=== PATIENT | male | born 1960 | race Caucasian/White ===

== ENCOUNTER 2018-01-27 14:49 | Emergency (ER) | payer OTHER ==
[~2018-01-27] VITALS: Ht 185.4 cm; Wt 111.6 kg
[2018-01-27] MEDS ORDERED: METFORMIN HCL500 MG PO (15:04)
[2018-01-27 15:45] LABS: URINE BILIRUBIN NEGATIVE (Negative); URINE BLOOD NEGATIVE (Negative); URINE CLARITY CLEAR; URINE COLOR YELLOW; URINE GLUCOSE-RANDOM NEGATIVE (Negative); URINE KETONES NEGATIVE (Negative); URINE LEUKOCYTES NEGATIVE (Negative); URINE NITRITE NEGATIVE (Negative); URINE PROTEIN NEGATIVE (Negative); URINE SPECIFIC GRAVITY 1.015 (1.005-1.030)
[2018-01-27] MEDS ORDERED: NORCO 5-325 TA1 EACH PO (16:04)
[2018-01-27] MEDS ORDERED: FLEXERIL PO (16:04)
[2018-01-27 16:13] VITALS: BP 133/63
[2018-02-12] MEDS ORDERED: TRAMADOL 50 MG50 MG PO (12:33)
[2018-02-12] MEDS ORDERED: MOBIC15 MG PO (13:28)
[2018-02-19] MEDS ORDERED: FLEXERIL PO (09:18)
[2018-02-19] MEDS ORDERED: MOBIC15 MG PO (09:18)
== END 2018-01-27 16:15 | disposition home or self-care (01) ==
LOC: M.ERS 14:49
PROVIDERS: Physician Assistant Surgical
DX: S39.012A Strain of muscle, fascia and tendon of lower back, initial encounter (principal); Z96.641 Presence of right artificial hip joint; X50.1XXA Overexertion from prolonged static or awkward postures, initial encounter; Y93.89 Activity, other specified; Y92.89 Other specified places as the place of occurrence of the external cause; Y99.8 Other external cause status

== ENCOUNTER → 2018-02-12 | Outpatient (CLI) | payer OTHER ==
[~2018-02-12] MED LIST: FLEXERIL PO; METFORMIN HCL500 MG PO; MOBIC15 MG PO; NORCO 5-325 TA1 EACH PO; TRAMADOL 50 MG50 MG PO
--- NOTE | 2018-03-25 10:00 | PAINCON ---
[address] [address] PAIN MANAGEMENT CONSULTATION Name: TYRESE PETERSON Room: [facility]#: [id number] Admission: 02/12/18 Attend Phys: Clif Salomon MD Discharge: Date of : 56 Report #: [id number] THIS REPORT FOR: //name// CC: [facility] physician/PCP Clif Salomon DATE OF SERVICE: 02/12/2018 PRIMARY CARE PHYSICIAN: He does not have a primary family physician. CHIEF COMPLAINT: "Pain in the low back is worse when I try to walk." HISTORY OF PRESENT ILLNESS: The patient is a 57-year-old gentleman who has been referred to the Pain Clinic for evaluation of back and leg pain. The patient noted onset of this discomfort on 01/26/2018. Notes that when he got out of bed, he was experiencing pain which was radiating down into his leg. Denies any trauma. Denies any past history of similar pain. Denies any bowel or bladder dysfunction. He has tried nonsteroidal anti-inflammatory medications. The patient did go to the Emergency Room because of discomfort. He does have a history of diabetes. He was evaluated. No kidney stones were found. The patient has undergone a CT as well as an MRI. ALLERGIES: No known drug allergies. MEDICATIONS: Metformin 500 mg b.i.d., Flexeril 1-2 tablets daily. PAST MEDICAL HISTORY: Diabetes. PAST SURGICAL HISTORY: Right hip replacement, left rotator cuff on 06/25/2013, right rotator cuff on 06/22/2016, left toe surgery. 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 He is not working, has not worked since 01/28/2018. REVIEW OF SYSTEMS: Generally good health, wears glasses, loss of appetite, changes in bowels, painful bowel, frequent urination, awakens at night to urinate, lightheadedness, dizziness, difficulty walking, back pain, muscle pain and cramps, weakness of muscles and joints, excessive thirst. DIAGNOSTIC DATA: MRI dated 01/29/2018: 1. There is a 2.8 cm exophytic cyst of the mid pole cortex of the left kidney, measuring signal intensity most suggestive of a simple cyst. 2. L1-L2: There is disk degeneration with disk desiccation and broad right paracentral annular disk bulge. This creates a mild flattening of the anterior thecal sac without encroachment upon the neural foramen or compressing and exiting nerve root. No evidence of spinal [place] [address] PAIN MANAGEMENT CONSULTATION Name: TYRESE PETERSON Room: [facility]#: [id number] Admission: 02/12/18 Attend Phys: Clif Salomon MD Discharge: Date of : 56 Report #: [id number] narrowing. Thecal sac 1.1 cm AP. 3. L2-L3: There is degenerative disk with disk desiccation and broad annular disk bulge. There is grade 1 anterolisthesis of L1 upon L3, measuring 0.5 cm, and a small midline disk protrusion which creates concave flattening of the anterior aspect of the thecal sac. There is posterior epidural or extradural deformity of the thecal sac also present produced bilateral hypertrophic facet arthropathy and hypertrophy of ligamentum flavum. This combination of findings produces [id number] stenosis of the central spinal canal and lateral recesses. There is also mild narrowing of the neural foramen bilaterally. Thecal sac 0.7 cm AP. 4. L3-L4: There is disk degeneration with disk desiccation and a broad central disk bulge. There is grade 1 retrolisthesis of L3 upon L4, measuring 0.5 cm. This creates a symmetric flattening of the left anterior thecal sac. There is bilateral hypertrophic degenerative facet arthropathy and there is mild hypertrophy of ligamentum flavum. No evidence for narrowing of the right neural foramen or right lateral recess. There is a symmetric narrowing and stenosis of the left neural foramen and probable extrinsic compression of the exiting left nerve root. There is also a small synovial cyst at the anterior margin of the left facet reticulation, likely contributing to narrowing of the left foramen and left recess. No significant stenosis or central spinal canal is present. Thecal sac 1.0 cm AP. 5. L4-L5: Degenerative disk changes with disk space narrowing, broad-based disk bulge, and possible small midline disk protrusion. This creates mild concave flattening of the thecal sac without encroachment upon the neural foramen. There is bilateral foraminal narrowing, produced bilateral hypertrophic facet arthropathy. No significant stenosis or central spinal canal. Thecal sac 1.4 cm AP. 6. L5-S1: There is a transitional lumbosacral junction. There is a hypoplastic disk present at the L5-S1 level. No evidence for disk protrusion, spinal stenosis or significant foraminal narrowing. Thecal sac 1.4 cm AP. Cervical spine CT dated 01/01/2018 findings: 1. Vertebral/soft tissues straightening is noted of the normal cervical lordotic curve. Mineralization appears normal. No fractures are identified. Prevertebral soft issues appear normal. 2. Intervertebral disk/facet is moderate. Intervertebral disk space narrowing is noted at the C6 with prominent osteophyte demonstrated. Moderate intervertebral disk space narrowing is noted at C6-C7 with osteophyte formation. Marked posterior neural foraminal stenosis is present at C3-C4, C4-C5, C5-C6, and C6-C7 levels bilaterally with bony osteophytes. 3. Marked degenerative arthritic changes of cervical spine with posterior neural foraminal stenosis. PAIN CLINIC ASSESSMENT: 1. History of osteoarthritis: The patient is not being treated for [place] [address] PAIN MANAGEMENT CONSULTATION Name: TYRESE PETERSON Room: [facility]#: [id number] Admission: 02/12/18 Attend Phys: Clif Salomon MD Discharge: Date of : 56 Report #: [id number] 2. Height 6 feet 1 inch, weight 238 pounds, BMI 33.9. 3. Vital signs: Blood pressure 148/80, heart rate 106, respiratory rate 16, room air saturation 98%. 4. Pain number: 02/18. 5. Fall history: The patient has not fallen in the last 3 months. 6. Blood thinner: The patient is not on blood thinning medication. 7. Hypertension: The patient is not being treated for hypertension. 8. Opioid medications: The patient is not on a regular opioid medication regimen. PHYSICAL EXAMINATION: GENERAL: The patient is a well-developed, well-nourished, white male. Appears his stated age. He is alert and oriented x 3. Affect is appropriate. Speech is fluent. HEENT: Normocephalic, atraumatic. Extraocular eye muscles intact. Sclerae not icteric. Mucous membranes are moist. NECK: With good range of motion without JVD or adenopathy. HEART: Regular rate. ABDOMEN: Nontender. MUSCULOSKELETAL: Upper extremity muscle strength is judged to be 5/5 for the major muscle groups without sensory changes. Lower extremity muscle strength is judged to be 5/5 for the major muscle groups. The patient has some pain and discomfort in the left and right paraspinal areas at L5-S1 as well as notes some pain and discomfort in the L2-L3 area of his left leg. The patient does walk with an antalgic gait. IMPRESSION: 1. Low back pain and strain. 2. Diabetes. RECOMMENDATIONS: We discussed treatment options with the patient. At this juncture, we will try conservative approach. The patient will try Meloxicam 15 mg 1 p.o. daily. Possibility of an injection to the affected areas in the future is an option. The patient will continue with stretching exercises. He may follow up with Dr. Eladio Alvarado in the near future to see whether or not surgical option would be necessary. At this juncture, we will continue with our conservative approach. We would like to thank you for letting us participate in his care. We hope he continues to improve. <ELECTRONICALLY SIGNED> By: Clif Salomon MD 03/25/18 [id number]. Prasanth Salomon MD /nt
== END ==
LOC: M.PC 03:47
DX: S39.012A Strain of muscle, fascia and tendon of lower back, initial encounter (principal); E11.9 Type 2 diabetes mellitus without complications; M19.90 Unspecified osteoarthritis, unspecified site; X58.XXXA Exposure to other specified factors, initial encounter; Y93.89 Activity, other specified; Y92.89 Other specified places as the place of occurrence of the external cause; Y99.8 Other external cause status

== ENCOUNTER → 2018-05-30 | Outpatient (CLI) | payer OTHER ==
[~2018-05-30] MED LIST changes: +CENTRUM SILVER1 EAC2 PO; +IBUPROFEN 200200 M1 PO
--- NOTE | ~2018-05-30 | PAINCON ---
[address] [address] PAIN MANAGEMENT CONSULTATION Name: TYRESE PETERSON [id number] Admission: 05/30/18 Attend Phys: Clif Salomon MD Discharge: Date of : 56 Report #: [id number] THIS REPORT FOR: //name// CC: [facility] physician/PCP Clif Salomon DATE OF SERVICE: 05/30/2018 HISTORY OF PRESENT ILLNESS: The patient is a 58-year-old gentleman who has been seen in the pain clinic in the past. He has had pain and discomfort, which was quite problematic. He was seen by the neurosurgeon. At that time, he was felt to have developed an infection in his low back area. He underwent appropriate treatment using IV antibiotics for a number of weeks. Overall, things have improved. He still has some pain and discomfort in his low back area. He has been seeking the services of a chiropractor. His back has continued to improve since the bacterial infection has been eradicated. He rates his pain as low while sitting, but can rise to a level that is quite problematic with activity. He has been doing stretching exercises. He has used a TENS unit. He notes that his pain can be quite problematic, particularly when he wakes up in the morning. He finds tramadol helpful. He has been using ibuprofen p.r.n. He notes that the pain is worse with activity such as walking, lifting, climbing stairs, bending. Medications and rest are beneficial and decrease his pain and discomfort. The patient does have diabetes. Continues to follow up with his chiropractor, which seems to be helping. He is making progress, albeit slowly. ALLERGIES: No known drug allergies. CURRENT MEDICATIONS: Metformin 500 mg b.i.d., tramadol 50 mg p.r.n., ibuprofen 200 mg. PAIN CLINIC ASSESSMENT: 1. History of osteoarthritis. The patient has arthritic changes with replacement of his right hip, left rotator cuff repair, and right rotator cuff repair. The patient has not been treated for rheumatoid arthritis. 2. Height 6 feet 1 inch, weight 256 pounds, BMI is 33. 3. Vital signs: Blood pressure 155/82, heart rate 81, respiratory rate 16, room air saturation 96%, temperature 97.9. 4. Pain score 0/10 with sitting, increases with walking and activities of daily living. 5. Fall risk. The patient has not fallen in the last 3 months. 6. Blood thinner. The patient is not on a blood thinning medication. 7. Hypertension. The patient is not being treated for hypertension. 8. Opioid is greater than 6 weeks. The patient is not on opioid regimen. He is receiving tramadol p.r.n. for pain relief. 9. Risk assessment tool, low for opioid use. 10. Functional [place] [address] PAIN MANAGEMENT CONSULTATION Name: KRISTENTYRESE Isidra Room: [facility]#: [id number] Admission: 05/30/18 Attend Phys: Clif Salomon MD Discharge: Date of : 56 Report #: [id number] 11. Recreational drug use. The patient denies use of recreational drugs. 12. Tobacco: The patient denies use of tobacco. 13. Alcohol: The patient denies use of alcoholic beverages. PHYSICAL EXAMINATION: GENERAL: The patient is a well-developed, well-nourished white male. Appears his stated age. He is alert and oriented x 3. Affect is appropriate. Speech is fluent. HEENT: Normocephalic, atraumatic. Extraocular eye muscles intact. Sclerae nonicteric. Mucous membranes are moist. NECK: Without adenopathy or JVD. HEART: Regular rate. S1, S2. CHEST: Clear to auscultation. ABDOMEN: Nontender. Bowel sounds present. EXTREMITIES: Upper extremity muscle strength is judged to be 5/5 for the major muscle groups in the upper extremity. The patient without significant scoliosis, kyphosis or lordosis. He does have some pain and discomfort in the low back area with pain primarily in the right paraspinous area near the posterior superior iliac spine. Palpation in this area lightly does cause a reproduction of the patient's pain and discomfort. Left side is not problematic. The patient does have a slight antalgic walk. He is not experiencing pain radiating down into his leg at this juncture. No sensory changes are noted in the lower extremity at this juncture. IMPRESSION: 1. Myofascial pain, right posterior superior iliac spine area. 2. History of bacterial infection, treated with antibiotics. The patient states that he has been cleared. 3. Diabetes. 4. Osteoarthritis involving the right hip as well as left and right shoulder. RECOMMENDATIONS: We discussed treatment options with the patient. At this juncture, he is having pain, which is focal in nature. I think a trigger point injection to the affected area would be reasonable. Risks and benefits of the procedure were discussed with the patient. They include but are not limited to infection, worsening of pain, no improvement in pain and the patient elects to proceed. PROCEDURE NOTE: The patient was taken to the procedure area. He was assisted in getting on the examination table. He sat perpendicular to the table. A chair was placed under his feet. The patient leaned forward as though he were going to tie his shoes. Palpation in the right posterior superior iliac spine areas reproduced the patient's discomfort. A total of 80 mg Depo-Medrol, 10 mL 0.5% bupivacaine were injected. The patient did not have any pain radiating down into his leg at the time of the injection. He remained in the pain clinic for an appropriate amount of time. Hopefully, he [place] [address] PAIN MANAGEMENT CONSULTATION Name: KRISTENTYRESE Isidra Room: [facility]#: [id number] Admission: 05/30/18 Attend Phys: Clif Salomon MD Discharge: Date of : 56 Report #: [id number] We would like to thank you for letting us participate in his care. We hope he continues to improve. It was in the area of the right posterior superior iliac spine, gluteus juli and latissimus dorsi. By: [id number] 0352N. Prasanth Salomon MD /nt
== END | disposition home or self-care (01) ==
LOC: M.PC 01:42
DX: M79.18 Myalgia, other site (principal); E11.9 Type 2 diabetes mellitus without complications; I10 Essential (primary) hypertension; M16.11 Unilateral primary osteoarthritis, right hip; M19.012 Primary osteoarthritis, left shoulder; M54.5 Low back pain; M19.011 Primary osteoarthritis, right shoulder; Z79.84 Long term (current) use of oral hypoglycemic drugs; Z79.899 Other long term (current) drug therapy; Z96.641 Presence of right artificial hip joint; Z98.890 Other specified postprocedural states

== ENCOUNTER → 2018-08-15 | Outpatient (CLI) | payer OTHER ==
--- NOTE | ~2018-08-15 | PAINCON ---
[address] [address] PAIN MANAGEMENT CONSULTATION Name: TYRESE PETERSON Room: [facility]#: [id number] Admission: 08/15/18 Attend Phys: Clif Salomon MD Discharge: Date of : 56 Report #: [id number] THIS REPORT FOR: //name// CC: [facility] physician/PCP Clif Salomon DATE OF SERVICE: 08/15/2018 PRIMARY CARE PHYSICIAN: The patient does not have a primary care physician. CHIEF COMPLAINT: Pain in the back and anterior leg. HISTORY: The patient is a 58-year-old gentleman who has been seen in the pain clinic in the past. As you recall, he has seen a neurosurgeon. At that time, he was found to have an infection in his lower back. He underwent appropriate antibiotic treatment. This infection has resolved. He continues to have pain, which is problematic. He has undergone chiropractic treatment. He continues to engage in stretching activities. He has used a TENS unit. Recently, he was working on an outlet. He noted he turned. Notes significant pain and discomfort, which caused some difficulty in walking, lifting and bending. He has had an MRI, which shows spinal stenosis with a measurement of 0.7 cm at the L2-L3 area. He works on a very physical job. 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 He feels that the pain continues to be quite problematic. ALLERGIES: No known drug allergies. CURRENT MEDICATIONS: Metformin 500 mg, ibuprofen 200 mg, tramadol 50 mg, and Centrum Silver. PAIN CLINIC ASSESSMENT/PQRS: 1. The patient has arthritic changes, but has had replacement of his right hip. He has had left rotator cuff repair as well as right rotator cuff repair. He is not being treated for rheumatoid arthritis. 2. Height 6 feet 1 inch, weight 263 pounds, BMI is 34.7. 3. Vital signs: Blood pressure 150/75, heart rate 75, respiratory rate 18, room air saturation 96%, temperature 98.2. 4. Pain intensity 3-10/18. 5. Fall risk. The patient has not fallen in the last 3 months. 6. Blood thinner. The patient is not on a blood thinning medication. 7. Hypertension. The patient has not been treated for hypertension. 8. Opiates greater than 6 weeks. The patient is not on an opioid regimen. The patient is receiving tramadol p.r.n. 9. Risk assessment tool, low for opioid use. 10. Functional assessment tool. 11. Recreational drug use. The patient denies use of recreational drugs. 12. Tobacco: The [place] [address] PAIN MANAGEMENT CONSULTATION Name: TYRESE PETERSON Room: [facility]#: [id number] Admission: 08/15/18 Attend Phys: Clif Salomon MD Discharge: Date of : 56 Report #: [id number] 13. Alcohol: The patient denies use of alcoholic beverages on a regular basis. PHYSICAL EXAMINATION: GENERAL: The patient is a well-developed, well-nourished white male. Appears his stated age. He is alert and oriented x 3. His affect is appropriate. Speech is fluent. HEENT: Normocephalic, atraumatic. Extraocular eye muscles intact. Sclerae nonicteric. Mucous membranes are moist. ABDOMEN: Nontender. Bowel sounds present. EXTREMITIES: Upper extremity muscle strength is judged to be 5-/5 for the major muscle groups in the upper extremity. The patient without significant scoliosis, kyphosis or lordosis. The patient has pain and discomfort in the lower his portion of his back with a posterior superior iliac spine. The patient has pain that causes difficulty walking and ambulation. The patient has had some pain and discomfort in the L2-L3 dermatomal distribution. Feels that there might be some sensory changes. IMPRESSION: 1. 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 2. History of bacterial infection, treated with antibiotics. 3. Diabetes. 4. History of osteoarthritis involving the right hip, left as well as right shoulder. RECOMMENDATIONS: We discussed treatment options with the patient. The patient continues to have pain, which is quite debilitating. Notes that there is pain in his back with some pain in the L2-L3 dermatomal distribution. The patient has an MRI which reports narrowing of the thecal sac to 7 cm AP. These findings produce moderate stenosis of the central spinal cord and lateral recesses. The patient finds continue to work difficult because of this discomfort. He will return to the pain clinic at which time after his insurance provides precertification and undergo an epidural steroid injection to help with the pain and discomfort, which he is experiencing. Risks and benefits of the procedure were discussed. We would like to thank you for letting us participate in his care. We hope he continues to improve. By: [id number] [id number]. Prasanth Salomon MD /ELA
== END ==
LOC: M.PC 08-06 08:30
DX: M48.061 Spinal stenosis, lumbar region without neurogenic claudication (principal); E11.9 Type 2 diabetes mellitus without complications; I10 Essential (primary) hypertension; M16.11 Unilateral primary osteoarthritis, right hip; Z79.899 Other long term (current) drug therapy; Z86.19 Personal history of other infectious and parasitic diseases

== ENCOUNTER → 2018-08-20 | Outpatient (CLI) | payer OTHER ==
--- NOTE | ~2018-08-20 | PAINCON ---
[address] [address] PAIN MANAGEMENT CONSULTATION Name: TYRESE PETERSON Room: [facility]#: [id number] Admission: 08/20/18 Attend Phys: Clif Salomon MD Discharge: Date of : 56 Report #: [id number] THIS REPORT FOR: //name// CC: [facility] physician/PCP Clif Salomon DATE OF SERVICE: 08/20/2018 CHIEF COMPLAINT: This is a 58-year-old gentleman who has been seen in the Pain Clinic in the past. He has visited a neurosurgeon. He did have an infection in his low back area. Underwent antibiotic treatment. Has low back pain, which he describes as constant in the morning at its worse. Sometimes improves by midday. He has returned today for an epidural steroid injection. 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 Rates his pain as 3-4/10. Finds that the tramadol can be helpful. As undergone chiropractic treatment, has been using nonsteroidal anti-inflammatory medications, has tried T10 and has undergone physical therapy. Does have some sensory changes in his left leg at L2-L3. He would like to undergo an epidural steroid injection to see whether or not this will be helpful in decreasing his pain and discomfort. ALLERGIES: No known drug allergies. CURRENT MEDICATIONS: Metformin 500 mg, ibuprofen 200 mg, tramadol 50 mg, and Centrum Silver. PAIN CLINIC ASSESSMENT/PQRS. 1. The patient has arthritic changes. Has had replacement of his right hip. He has had left rotator cuff repair as well as a right rib rotator cuff. He is not being treated for rheumatoid arthritis. 2. Height 6 feet 1 inch, weight 262 pounds, BMI is 34.4. 3. Vital signs: Blood pressure 140/81, heart rate 72, respiratory rate 16, room air saturation 96%, temperature 98.0. 4. Pain intensity 3-4/10. 5. Fall history: The patient has not fallen in the last 3 months. 6. Blood thinner. The patient is not on a blood thinning medication. 7. Hypertension. The patient is not being treated for hypertension. 8. Opioid greater than 6 weeks. The patient is not on a chronic opioid regimen. 9. Risk assessment tool, low for opioid use. 10. Functional assessment. 11. Recreational drug use. The patient denies use of recreational drugs. 12. Tobacco: The patient denies use of tobacco. 13. Alcohol: The patient denies use of alcoholic beverages on a regular basis. PHYSICAL EXAMINATION: [place] [address] PAIN MANAGEMENT CONSULTATION Name: TYRESE PETERSON Room: [facility]#: [id number] Admission: 08/20/18 Attend Phys: Clif Salomon MD Discharge: Date of : 56 Report #: [id number] GENERAL: The patient is a well-developed, well-nourished white male. Appears his stated age. VITAL SIGNS: Alert and oriented x 3. His affect is appropriate. Speech is fluent. HEENT: Normocephalic, atraumatic. Extraocular eye muscles intact. Sclerae nonicteric. Mucous membranes moist. NECK: Without adenopathy or JVD. ABDOMEN: Nontender. Bowel sounds present. HEART: Regular rate. EXTREMITIESL: Upper extremity is judged to be 5/5 for the major muscle groups of the upper extremity. The patient is without scoliosis, kyphosis or lordosis. The patient does have some pain and discomfort in the lower portion of his back with pain in the posterior superior iliac spine area. He also has pain and complains of discomfort in the L2-L3 right dermatomal distribution on the left. Feels that there is some sensory changes in this area as well. ASSESSMENT: 1. L2-L3 stenosis of the lumbar area with symptomatic changes and pain in the right. 2. History of bacterial infection, treated with antibiotics. 3. Diabetes. 4. History of osteoarthritis involving the right hip, left and right shoulder pain. RECOMMENDATIONS: We discussed treatment options with the patient. Risks and benefits of an epidural steroid injection were discussed. They include but are not limited to infection, worsening pain, no improvement in pain, trauma, bleeding and the patient elects to proceed. PROCEDURE NOTE: The patient was taken to the procedure area. He was then assisted in getting on the examination table. His back was sterilely prepped with a Betadine solution. Fluoroscopy using anterior, posterior as well as lateral viewing implemented. The patient's back was then anesthetized at the L2-L3 interspace. This area had been sterilely prepped with Betadine and infiltrated with a 25-gauge needle to numb the area. A 17-gauge Tuohy with loss of resistance technique was used to gain access to a midline approach. There was no CSF, heme or paresthesia. Total of 80 mg Depo-Medrol, 40 mg triamcinolone and 2 mL of 0.25% bupivacaine was injected. The patient tolerated the procedure well. There were no complications. He remained in the Pain Clinic for an appropriate amount of time. We will consider possibility of gabapentin as a medication to help with his pain should his pain persists. A total of 21 seconds fluoroscopy time was used. The patient's pain was 3-[address] [address] PAIN MANAGEMENT CONSULTATION Name: TYRESE PETERSON Room: [facility]#: [id number] Admission: 08/20/18 Attend Phys: Clif Salomon MD Discharge: Date of : 56 Report #: [id number] the time of discharge. We would like to thank you for letting us participate in his care. We hope he continues to improve. By: [id number]. Prasanth Salomon MD /nt
== END | disposition home or self-care (01) ==
LOC: M.PC 04:58
DX: M54.16 Radiculopathy, lumbar region (principal); G89.29 Other chronic pain; M48.061 Spinal stenosis, lumbar region without neurogenic claudication; E11.9 Type 2 diabetes mellitus without complications; M19.90 Unspecified osteoarthritis, unspecified site; Z86.19 Personal history of other infectious and parasitic diseases; Z79.899 Other long term (current) drug therapy; Z96.641 Presence of right artificial hip joint; Z98.890 Other specified postprocedural states

== ENCOUNTER → 2019-05-20 | Outpatient (CLI) | payer OTHER ==
--- NOTE | ~2019-05-20 | PAINCON ---
[address] [address] PAIN MANAGEMENT CONSULTATION Name: KRISTENTYRESE Isidra Room: [facility]#: [id number] Admission: 05/20/19 Attend Phys: Clif Salomon MD Discharge: Date of : 56 Report #: [id number] THIS REPORT FOR: //name// CC: [facility] physician/PCP Clif Salomon DATE OF SERVICE: 05/20/2019 He was referred to us by Angelina Rausch, nurse practitioner CHIEF COMPLAINT: "I had a return of pain in my back. Last injection was quite helpful. It's been a number of months." HISTORY: The patient is a 59-year-old gentleman who has been seen in the pain clinic because of lumbar radiculopathy. He has noticed a recurrence of pain and discomfort in his low back area, with pain down into the right hip area. He noticed that the pain has worsened over the last 2 weeks. He experienced 100% improvement in his pain after the last treatment. He has returned today with hopes of undergoing another epidural steroid injection to help curtail his pain. As you may recall, he did have an infection in his low back area. He has undergone antibiotic treatment. 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 He rates his pain score today as a 4-5/10. Notes the pain is worse when he is walking, sitting, standing, climbing stairs, bending and lifting. He has used tramadol sparingly. Feels that medication is helpful as well and would like to have it renewed. At work, he was riding a machine. It was felt that there was a problem with the wheel. The constant thumping as he rode it impacted his back and he feels that that might have attributed to the onset of this discomfort. ALLERGIES: No known drug allergies. CURRENT MEDICATIONS: Metformin 500 mg, ibuprofen 200 mg, tramadol 50 mg p.r.n. and Centrum Silver. PAIN CLINIC ASSESSMENT AND PQRS: 1. The patient has arthritic changes. 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 He has had left rotator cuff repair as well as right rotator cuff problems. He is not being treated for rheumatoid arthritis. 2. Height 6 feet 1 inch, weight 268 pounds, BMI is 35. 3. Blood pressure 145/79, heart rate 79, respiratory rate 16, room air saturation 94%, and temperature 97.7. 4. Pain intensity 4-5/10. 5. Fall history: The patient has not fallen in the last 3 months. 6. Blood thinner. The patient is not on a blood thinning medication. 7. Hypertension. The patient is not being treated for hypertension. 8. Opioids greater than 6 weeks. The [place] [address] PAIN MANAGEMENT CONSULTATION Name: TYRESE PETERSON Room: [facility]#: [id number] Admission: 05/20/19 Attend Phys: Clif Salomon MD Discharge: Date of : 56 Report #: [id number] regular basis. 9. Risk assessment tool, low for opioid use. 10. Functional assessment tool has been reviewed. 11. Recreational drug use: The patient denies. 12. Tobacco: The patient denies. 13. Alcohol. The patient denies, other than occasional alcoholic beverage. PHYSICAL EXAMINATION: GENERAL: The patient is a well-developed, well-nourished white male. Appears his stated age. He is alert and oriented x 3. His affect is appropriate. Speech is fluent. HEENT: Normocephalic, atraumatic. Extraocular eye muscles intact. Sclerae nonicteric. Mucous membranes are moist. NECK: Without adenopathy or JVD. ABDOMEN: Nontender. Bowel sounds present. HEART: Regular rate. EXTREMITIES: Upper extremity muscle strength judged to be 5-/5 for the major muscle groups in the upper extremity. The patient is without scoliosis, kyphosis or lordosis. Has pain and discomfort that is radiating down the lower portion of his back. Has pain in the L2-L3 dermatomal distribution. Feels that this pain that he is experiencing is very similar to that he experienced in the past. ASSESSMENT: 1. 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 2. History of bacterial infection, treated with antibiotics. 3. Diabetes. 4. History of osteoarthritis involving the right hip, left hip and right shoulder pain. RECOMMENDATIONS: We discussed treatment options with the patient. Risks and benefits of an epidural steroid injection were discussed. Possible complications of the procedure were reviewed. They include but are not limited to infection, worsening pain, no improvement in pain. At this point, we will proceed with an epidural steroid injection. Risks and benefits were discussed and the patient elects to proceed. PROCEDURE NOTE: The patient was taken to the procedure room. He was then assisted in getting on the examination table. His back was sterilely prepped with a Betadine solution. At the L2-L3 interspace 0.25% bupivacaine was infiltrated. A 17-gauge Tuohy with loss of resistance technique using a midline approach at L2-L3 interspace was undertaken. There was no CSF, heme or paresthesia. Total of 80 mg Depo-Medrol, 40 mg of triamcinolone and 2 mL of 0.25% bupivacaine was injected. The patient tolerated the procedure well. Approximately 15 seconds fluoro time was used. He will follow [place] [address] PAIN MANAGEMENT CONSULTATION Name: KRISTENTYRESE Isidra Room: [facility]#: [id number] Admission: 05/20/19 Attend Phys: Clif Salomon MD Discharge: Date of : 56 Report #: [id number] We would like to thank you for letting us participate in his care. We hope he continues to improve. By: [id number]. Prasanth Salomon MD /nt
== END | disposition home or self-care (01) ==
LOC: M.PC 05:06
DX: M54.16 Radiculopathy, lumbar region (principal); M48.061 Spinal stenosis, lumbar region without neurogenic claudication; G89.29 Other chronic pain; E11.9 Type 2 diabetes mellitus without complications; M19.90 Unspecified osteoarthritis, unspecified site; Z98.890 Other specified postprocedural states; Z79.899 Other long term (current) drug therapy